=== PATIENT | female | born 1945 | race Caucasian/White ===

== ENCOUNTER 2018-04-30 14:03 | Emergency (ER) | payer OTHER ==
[2018-04-30 14:29] VITALS: BP 157/70; PULSE 60; TEMP 98.5; BMI 28.3
--- NOTE | 2018-04-30 14:45 | PDOC ---
History of Present Illness - General Chief Complaint: Pain Stated Complaint: PAIN Time Seen by Provider: 04/30/18 14:35 History Source: Patient - History of Present Illness Occurred: reports: yesterday Upper Extremity Pain Location: right: hand Method of Injury: reports: direct blow Past History - Past Medical History Allergies/Adverse Reactions: Allergies Allergy/AdvReac Type Severity Reaction Status Date / Time codeine [Codeine] Allergy Unknown Verified 04/30/18 14:20 hydromorphone HCl Allergy Unknown Verified 04/30/18 14:20 [From Dilaudid] tramadol Allergy Unknown Verified 04/30/18 14:20 levofloxacin [From Levaquin] Allergy Verified 04/30/18 14:20 Home Medications: Ambulatory Orders Albuterol Sulfate 0.042% [Ventolin 0.042% (Half-Strength) -] 1 neb PO Q4H PRN Amlodipine Besylate [Norvasc -] 5 mg PO DAILY 06/09/12 Aspirin [ASA -] 81 mg PO DAILY 06/09/12 Budesonide/Formeterol Fumarate [SYMBICORT 160/4.5mcg -] 1 inh IH BID 06/09/12 Dicyclomine HCl [Bentyl -] 10 mg PO BID 06/09/12 Gabapentin [Neurontin] 300 mg PO DAILY 06/09/12 Metoprolol Succinate [Toprol XL -] 25 mg PO DAILY 06/09/12 Montelukast Na [Singulair -] 10 mg PO DAILY 06/09/12 Oxybutynin Chloride [Oxybutynin Chloride ER] 10 mg PO DAILY 06/09/12 Tiotropium Cedar [Spiriva] 18 mcg IH DAILY 06/09/12 Valsartan/Hydrochlorothiazide [Diovan Hct 160-12.5 mg Tablet -] 1 combo PO DAILY 06/09/12 Fluconazole [Diflucan -] 100 mg PO DAILY #5 tablet 07/29/16 Lactobacillus Acidophilus [Bacid -] 1 each PO BID #14 capsule 07/29/16 Pantoprazole Sodium [Protonix -] 40 mg PO DAILY #30 tablet.ec 07/29/16 Asthma: Yes Cardiac Disorders: Yes (angina 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) COPD: Yes (home O2) GI Disorders: Yes (REFLUX.) Disorders: Yes HTN: Yes Thyroid Disease: No - Surgical History Abdominal Surgery: Yes Appendectomy: Yes - Immunization History Immunization Up to Date: Yes - Suicide/Smoking/Psychosocial Hx Smoking Status: Yes Smoking History: Never smoked Have you smoked in the past 12 months: No Number of Cigarettes Smoked Daily: 0 If you are a former smoker, when did you quit?: 31 years ago Information on smoking cessation initiated: No Hx Alcohol Use: No Drug/Substance Use Hx: No Substance Use Type: None Hx Substance Use Treatment: No Review of Systems - Review of Systems Musculoskeletal: Yes: Joint Pain, Joint Swelling *Physical Exam - Vital Signs Last Vital Signs Temp Pulse Resp BP Pulse Ox 98.5 F 60 18 157/70 99 04/30/18 14:16 04/30/18 14:16 04/30/18 14:16 04/30/18 14:16 04/30/18 14:16 - Physical Exam General Appearance: Yes: Appropriately Dressed. No: Apparent Distress HEENT: positive: Normal Voice Neck: positive: Supple Respiratory/Chest: negative: Respiratory Distress Extremity: positive: Other (ecchymosis to ulnar aspect of R hand/wrist, no joint swelling/deformity, no ttp to snuff box, FROMI) Integumentary: positive: Dry, Warm Neurologic: positive: Alert, Normal Mood/Affect ED Treatment Course - RADIOLOGY Radiology Studies Ordered: Category Date Time Status WRIST W/HAND-RIGHT* [RAD] Stat Radiology 04/30/18 14:39 Ordered Medical Decision Making - Medical Decision Making 04/30/18 14:39 72 yo F, h/o COPD (02 dependent), hypertension, angina, CVA, GERD and asthma, here with bruising to right hand. Patient states yesterday while trying to "fix " something in her car, she developed pain and bruising to ulnar aspect of R hand/wrist after repeatedly banging on rubbering that surrounds car window. Concerned that bruising might be "a blood clot" per pt. No sig pain at this time See exam Hand contusion -XR though unlikely fx -declines pain meds 04/30/18 14:54 XR neg. Stable for dc w/ reassurance *DC/Admit/Observation/Transfer Diagnosis at time of Disposition: Contusion Qualifiers: Encounter type: initial encounter Contusion area: hand Laterality: right Qualified Code(s): S60.221A - Contusion of right hand, initial encounter - Discharge Dispostion Disposition: HOME Condition at time of disposition: Good - Referrals Referrals: Dorothea Haley MD [Primary Care Provider] - - Patient Instructions Printed Discharge Instructions: Contusion Additional Instructions: You sustained a contusion which will resolve in time Follow up with your PMD as needed - Post Discharge Activity
== END 2018-04-30 14:56 | disposition home or self-care (01) ==
LOC: JER 14:03 → JERFT 14:03
DX: S60.221A Contusion of right hand, initial encounter (principal); W22.8XXA Striking against or struck by other objects, initial encounter; Y93.89 Activity, other specified; Y92.89 Other specified places as the place of occurrence of the external cause; Y99.8 Other external cause status; J45.909 Unspecified asthma, uncomplicated; J44.9 Chronic obstructive pulmonary disease, unspecified; I10 Essential (primary) hypertension; K21.9 Gastro-esophageal reflux disease without esophagitis; Z86.73 Personal history of transient ischemic attack (TIA), and cerebral infarction without residual deficits; I25.119 Atherosclerotic heart disease of native coronary artery with unspecified angina pectoris; I49.9 Cardiac arrhythmia, unspecified; Z99.81 Dependence on supplemental oxygen
CPT/HCPCS: 73110-TC-RT-FY; 73130-TC-RT-FY; 99281-25

== ENCOUNTER 2021-03-11 10:32 | Inpatient (IN) | payer OTHER ==
[2021-03-11 10:39] VITALS: BMI 31.1
[2021-03-11 11:50] LABS: BASO % 0.5 % (0-2.0); EOS % 0.1 % (0-4.5); HEMATOCRIT 41.9 % (32.4-45.2); HEMOGLOBIN 13.9 GM/dL (10.7-15.3); LYMPH % 6.3 % (8-40); MCH 28.4 pg (25.7-33.7); MCHC 33.2 g/dl (32.0-36.0); MEAN CELL VOLUME 85.5 fl (80-96); MEAN PLT VOLUME 7.8 fl (7.5-11.1); MONO % 4.6 % (3.8-10.2); NEUT % 88.5 % (42.8-82.8); PLATELET COUNT 163 K/MM3 (134-434); RDW 13.7 % (11.6-15.6); WHITE BLOOD COUNT 12.3 K/mm3 (4.0-10.0)
[2021-03-11 11:57] LABS: INR 0.96 (0.83-1.09); PROTHROMBIN TIME (PATIENT) 11.8 SEC (9.7-13.0)
[2021-03-11 12:00] LABS: ACTIVATED PTT 25.9 SECONDS (25.2-36.5)
[2021-03-11 12:13] LABS: CHLORIDE 107 mmol/L (98-107); SODIUM 140 mmol/L (136-145)
[2021-03-11 12:16] LABS: ALBUMIN 3.2 g/dl (3.4-5.0); ANION GAP 6 MMOL/L (8-16); BLOOD UREA NITROGEN 16.4 mg/dL (7-18); CALCIUM 8.3 mg/dL (8.5-10.1); CO2 27 mmol/L (21-32); GLUCOSE,RANDOM 89 mg/dL (74-106)
[2021-03-11 12:19] LABS: CREATININE 0.9 mg/dL (0.55-1.3); SGOT/AST 32 U/L (15-37); SGPT/ALT 29 U/L (13-61)
[2021-03-11 12:21] LABS: ALK PHOS 254 U/L (45-117); BILIRUBIN,TOTAL 1.8 mg/dL (0.2-1); TOT PROT 6.4 g/dl (6.4-8.2)
[2021-03-11] MEDS ORDERED: ACETAMINOPHEN 1000 MG/100 ML VIAL (NON FORMULARY) IVPB ONE (16:46)
[2021-03-11] MEDS ORDERED: ACETAMINOPHEN INJECTION 100 ML IVPB ONE (17:11)
[2021-03-11] MEDS ORDERED: PT OWN MED DRAWER 7, Y5N ONE ×2 (20:23→21:24)
[2021-03-11] MEDS: AMPICILLIN NA/SULBACTAM NA 3 GM in SODIUM CHLORIDE 100 ML IVPB SCH (20:45)
[2021-03-11] MEDS: BUDESONIDE/FORMETEROL FUMARATE 160/4.5 mcg INHALER IH SCH (21:50)
[2021-03-11] MEDS: ACETAMINOPHEN 1000 MG/100 ML VIAL (NON FORMULARY) IVPB PRN (21:57)
[2021-03-12] MEDS ORDERED: PT OWN MED DRAWER 7, Y5N ONE (02:16)
[2021-03-12] MEDS: AMPICILLIN NA/SULBACTAM NA 3 GM in SODIUM CHLORIDE 100 ML IVPB SCH ×3 (02:19→17:59)
[2021-03-12] MEDS: ACETAMINOPHEN 1000 MG/100 ML VIAL (NON FORMULARY) IVPB PRN (04:32)
[2021-03-12 08:40] LABS: BASO % 0.4 % (0-2.0); EOS % 2.7 % (0-4.5); HEMATOCRIT 40.3 % (32.4-45.2); HEMOGLOBIN 13.3 GM/dL (10.7-15.3); MCH 28.7 pg (25.7-33.7); MEAN PLT VOLUME 8.1 fl (7.5-11.1); MONO % 6.8 % (3.8-10.2); NEUT % 79.1 % (42.8-82.8); PLATELET COUNT 150 K/MM3 (134-434); RBC 4.64 M/mm3 (3.60-5.2); RDW 14.2 % (11.6-15.6); WHITE BLOOD COUNT 11.2 K/mm3 (4.0-10.0)
[2021-03-12 08:57] LABS: CHLORIDE 109 mmol/L (98-107); SODIUM 143 mmol/L (136-145)
[2021-03-12 08:59] LABS: ALBUMIN 2.8 g/dl (3.4-5.0); ANION GAP 5 MMOL/L (8-16); BLOOD UREA NITROGEN 11.9 mg/dL (7-18); CALCIUM 8.2 mg/dL (8.5-10.1); CO2 29 mmol/L (21-32); GLUCOSE,RANDOM 81 mg/dL (74-106)
[2021-03-12 09:02] LABS: CREATININE 0.8 mg/dL (0.55-1.3); SGOT/AST 19 U/L (15-37); SGPT/ALT 22 U/L (13-61)
[2021-03-12 09:04] LABS: BILIRUBIN,TOTAL 2.3 mg/dL (0.2-1); TOT PROT 5.5 g/dl (6.4-8.2)
[2021-03-12 09:11] LABS: ALK PHOS 203 U/L (45-117)
[2021-03-12] MEDS: BUDESONIDE/FORMETEROL FUMARATE 160/4.5 mcg INHALER IH SCH ×2 (09:59→21:51)
[2021-03-12] MEDS ORDERED: PANTOPRAZOLE SODIUM 40 MG VIAL IVPUSH SCH (10:00)
[2021-03-12 11:35] LABS: LDH 183 U/L (84-246)
[2021-03-12] MEDS: metoPROLOL SUCCINATE 25 MG TAB.SR.24H (FP) PO SCH ×2 (13:51→15:09)
[2021-03-12] MEDS: LISINOPRIL 20 MG TABLET PO SCH ×2 (13:51→15:09)
[2021-03-13] MEDS ORDERED: PT OWN MED DRAWER 7, Y5N ONE ×2 (02:42→17:10)
[2021-03-13] MEDS: AMPICILLIN NA/SULBACTAM NA 3 GM in SODIUM CHLORIDE 100 ML IVPB SCH ×3 (02:47→17:15)
[2021-03-13 08:45] LABS: BASO % 0.4 % (0-2.0); EOS % 3.7 % (0-4.5); HEMATOCRIT 43.2 % (32.4-45.2); HEMOGLOBIN 14.3 GM/dL (10.7-15.3); LYMPH % 12.8 % (8-40); MCH 29.3 pg (25.7-33.7); MCHC 33.2 g/dl (32.0-36.0); MEAN CELL VOLUME 88.2 fl (80-96); MONO % 4.1 % (3.8-10.2); PLATELET COUNT 178 K/MM3 (134-434); RBC 4.89 M/mm3 (3.60-5.2); RDW 14.3 % (11.6-15.6)
[2021-03-13 09:06] LABS: ALBUMIN 3.2 g/dl (3.4-5.0); BILIRUBIN,TOTAL 1.8 mg/dL (0.2-1)
[2021-03-13 09:08] LABS: BILIRUBIN,DIRECT 0.4 mg/dL (0.0-0.2); TOT PROT 6.6 g/dl (6.4-8.2)
[2021-03-13 09:09] LABS: ALBUMIN 3.2 g/dl (3.4-5.0); BLOOD UREA NITROGEN 14.1 mg/dL (7-18); CALCIUM 8.8 mg/dL (8.5-10.1)
[2021-03-13 09:12] LABS: CREATININE 0.7 mg/dL (0.55-1.3)
[2021-03-13 09:15] LABS: BILIRUBIN,TOTAL 1.8 mg/dL (0.2-1); TOT PROT 6.6 g/dl (6.4-8.2)
[2021-03-13] MEDS: LISINOPRIL 20 MG TABLET PO SCH (09:15)
[2021-03-13] MEDS: metoPROLOL SUCCINATE 25 MG TAB.SR.24H (FP) PO SCH (09:15)
[2021-03-13] MEDS: PANTOPRAZOLE 40 MG TABLET PO SCH (09:15)
[2021-03-13] MEDS: BUDESONIDE/FORMETEROL FUMARATE 160/4.5 mcg INHALER IH SCH ×2 (10:13→21:32)
[2021-03-13] MEDS ORDERED: amLODIPine BESYLATE 5 MG TABLET (FP) PO ONE (17:31)
[2021-03-13] MEDS: LIPASE/PROTEASE/AMYLASE 6,000 UNIT CAPSULE PO SCH ×2 (18:47→19:07)
[2021-03-14] MEDS: AMPICILLIN NA/SULBACTAM NA 3 GM in SODIUM CHLORIDE 100 ML IVPB SCH ×3 (02:52→17:22)
[2021-03-14] MEDS ORDERED: CHOLESTYRAMINE/ASPARTAME 4 GM PACKET PO SCH (07:00)
[2021-03-14 08:32] LABS: BASO % 0.7 % (0-2.0); EOS % 5.9 % (0-4.5); HEMATOCRIT 39.9 % (32.4-45.2); HEMOGLOBIN 13.5 GM/dL (10.7-15.3); LYMPH % 11.6 % (8-40); MCH 29.4 pg (25.7-33.7); MCHC 33.7 g/dl (32.0-36.0); MEAN CELL VOLUME 87.3 fl (80-96); MEAN PLT VOLUME 7.9 fl (7.5-11.1); MONO % 5.4 % (3.8-10.2); NEUT % 76.4 % (42.8-82.8); PLATELET COUNT 160 K/MM3 (134-434); RBC 4.57 M/mm3 (3.60-5.2); RDW 13.6 % (11.6-15.6); RETICULOCYTES 1.09 % (0.5-1.5); WHITE BLOOD COUNT 6.7 K/mm3 (4.0-10.0)
[2021-03-14 08:49] LABS: CALCIUM 7.9 mg/dL (8.5-10.1)
[2021-03-14 08:50] LABS: BLOOD UREA NITROGEN 6.9 mg/dL (7-18)
[2021-03-14 08:53] LABS: CREATININE 0.6 mg/dL (0.55-1.3)
[2021-03-14] MEDS ORDERED: PT OWN MED DRAWER 7, Y5N ONE ×2 (09:21→17:47)
[2021-03-14] MEDS: metoPROLOL SUCCINATE 25 MG TAB.SR.24H (FP) PO SCH (09:26)
[2021-03-14] MEDS: LIPASE/PROTEASE/AMYLASE 6,000 UNIT CAPSULE PO SCH ×3 (09:26→17:21)
[2021-03-14] MEDS: PANTOPRAZOLE 40 MG TABLET PO SCH (09:26)
[2021-03-14] MEDS: LISINOPRIL 20 MG TABLET PO SCH (09:30)
[2021-03-14] MEDS: BUDESONIDE/FORMETEROL FUMARATE 160/4.5 mcg INHALER IH SCH ×2 (11:16→21:16)
[2021-03-14] MEDS: CHOLESTYRAMINE/ASPARTAME 4 GM PACKET PO SCH ×2 (12:11→17:21)
[2021-03-14] MEDS ORDERED: D5-1/2NS+20 MEQ KCL - 20 MEQ/1,000 ML INFUS.BAG IV SCH (12:45)
[2021-03-14 13:06] LABS: HEP B CORE AB, TOT Negative (Negative)
[2021-03-14] MEDS: KCL 10 MEQ IVPB 10 MEQ/100 ML INFUS.BAG IVPB SCH ×2 (14:23→18:48)
[2021-03-15] MEDS: AMPICILLIN NA/SULBACTAM NA 3 GM in SODIUM CHLORIDE 100 ML IVPB SCH ×3 (02:24→17:13)
[2021-03-15 08:24] LABS: BASO % 1.1 % (0-2.0); EOS % 8.5 % (0-4.5); HEMATOCRIT 38.6 % (32.4-45.2); LYMPH % 18.2 % (8-40); MCH 29.2 pg (25.7-33.7); MCHC 33.7 g/dl (32.0-36.0); MEAN CELL VOLUME 86.7 fl (80-96); MEAN PLT VOLUME 7.8 fl (7.5-11.1); MONO % 7.5 % (3.8-10.2); NEUT % 64.7 % (42.8-82.8); PLATELET COUNT 150 K/MM3 (134-434); RBC 4.46 M/mm3 (3.60-5.2); RDW 13.5 % (11.6-15.6); WHITE BLOOD COUNT 5.3 K/mm3 (4.0-10.0)
[2021-03-15] MEDS ORDERED: PT OWN MED DRAWER 7, Y5N ONE ×3 (08:24→17:12)
[2021-03-15] MEDS: CHOLESTYRAMINE/ASPARTAME 4 GM PACKET PO SCH ×3 (08:27→17:13)
[2021-03-15 08:53] LABS: ALBUMIN 2.6 g/dl (3.4-5.0); BLOOD UREA NITROGEN 4.3 mg/dL (7-18); CALCIUM 7.8 mg/dL (8.5-10.1); MAGNESIUM 1.8 mg/dL (1.8-2.4)
[2021-03-15 08:57] LABS: CREATININE 0.6 mg/dL (0.55-1.3); TOT PROT 5.4 g/dl (6.4-8.2)
[2021-03-15] MEDS: metoPROLOL SUCCINATE 25 MG TAB.SR.24H (FP) PO SCH (09:10)
[2021-03-15] MEDS: PANTOPRAZOLE 40 MG TABLET PO SCH (09:10)
[2021-03-15] MEDS: LISINOPRIL 20 MG TABLET PO SCH (09:10)
[2021-03-15] MEDS: LIPASE/PROTEASE/AMYLASE 6,000 UNIT CAPSULE PO SCH ×3 (09:11→17:14)
[2021-03-15] MEDS: BUDESONIDE/FORMETEROL FUMARATE 160/4.5 mcg INHALER IH SCH ×3 (09:11→21:50)
[2021-03-15] MEDS ORDERED: POTASSIUM CHLORIDE ORAL LIQUID 20 MEQ/15 ML PO ONE (11:46)
[2021-03-15] MEDS ORDERED: ALPRAZolam 0.25 MG TABLET PO PRN (11:46)
[2021-03-16] MEDS ORDERED: PT OWN MED DRAWER 7, Y5N ONE ×5 (00:42→21:03)
[2021-03-16] MEDS: AMPICILLIN NA/SULBACTAM NA 3 GM in SODIUM CHLORIDE 100 ML IVPB SCH ×3 (01:24→17:37)
[2021-03-16] MEDS: CHOLESTYRAMINE/ASPARTAME 4 GM PACKET PO SCH ×3 (08:03→17:04)
[2021-03-16] MEDS: LIPASE/PROTEASE/AMYLASE 6,000 UNIT CAPSULE PO SCH ×3 (08:32→17:04)
[2021-03-16] MEDS: LISINOPRIL 20 MG TABLET PO SCH (09:13)
[2021-03-16] MEDS: PANTOPRAZOLE 40 MG TABLET PO SCH (09:14)
[2021-03-16] MEDS: metoPROLOL SUCCINATE 25 MG TAB.SR.24H (FP) PO SCH (09:14)
[2021-03-16] MEDS: BUDESONIDE/FORMETEROL FUMARATE 160/4.5 mcg INHALER IH SCH ×2 (09:15→21:28)
[2021-03-16 12:06] LABS: BLOOD UREA NITROGEN 7.4 mg/dL (7-18); CALCIUM 8.7 mg/dL (8.5-10.1)
[2021-03-16 12:08] LABS: BILIRUBIN,TOTAL 0.9 mg/dL (0.2-1); TOT PROT 6.3 g/dl (6.4-8.2)
[2021-03-16 12:09] LABS: CREATININE 0.8 mg/dL (0.55-1.3)
[2021-03-16] MEDS: BANATROL PLUS POWDER PACKET PO SCH ×2 (17:04→21:28)
[2021-03-16] MEDS ORDERED: DICYCLOMINE HCL 10 MG CAPSULE PO SCH (22:00)
[2021-03-16] MEDS ORDERED: POTASSIUM CHLORIDE ORAL LIQUID 20 MEQ/15 ML PO ONE (22:35)
[2021-03-17] MEDS: BANATROL PLUS POWDER PACKET PO SCH ×4 (06:40→17:08)
[2021-03-17] MEDS: LISINOPRIL 20 MG TABLET PO SCH (09:40)
[2021-03-17] MEDS: metoPROLOL SUCCINATE 25 MG TAB.SR.24H (FP) PO SCH (09:41)
[2021-03-17] MEDS: BUDESONIDE/FORMETEROL FUMARATE 160/4.5 mcg INHALER IH SCH (09:42)
[2021-03-17] MEDS ORDERED: amLODIPine BESYLATE 5 MG TABLET (FP) PO SCH (10:00)
[2021-03-17] MEDS ORDERED: PT OWN MED DRAWER 7, Y5N ONE ×2 (11:37→16:43)
[2021-03-17 14:34] VITALS: BP 143/78; PULSE 69; TEMP 98.3
[2021-03-18 19:06] LABS: TRANSGLUTAMINASE IGA < 2 U/mL (0-3); TRANSGLUTAMINASE IGG < 2 U/mL (0-5)
== END 2021-03-17 17:00 | disposition home or self-care (01) | DRG 394 ==
LOC: JER 10:32 → JERBED 11:43 → J6S 18:47
PROVIDERS: ADMIT Internal Medicine; ATTEND Internal Medicine
PROC: 0DBP8ZX Excision of Rectum, Via Natural or Artificial Opening Endoscopic, Diagnostic (ICD-10-PCS; 2021-03-13)
PROC: 0DBM8ZX Excision of Descending Colon, Via Natural or Artificial Opening Endoscopic, Diagnostic (ICD-10-PCS; 2021-03-13)
PROC: 0DBL8ZX Excision of Transverse Colon, Via Natural or Artificial Opening Endoscopic, Diagnostic (ICD-10-PCS; 2021-03-13)
PROC: 0DBN8ZX Excision of Sigmoid Colon, Via Natural or Artificial Opening Endoscopic, Diagnostic (ICD-10-PCS; principal; 2021-03-13 12:00)
DX: K55.9 Vascular disorder of intestine, unspecified (principal); K62.5 Hemorrhage of anus and rectum; I10 Essential (primary) hypertension; J45.909 Unspecified asthma, uncomplicated; K21.9 Gastro-esophageal reflux disease without esophagitis; K76.0 Fatty (change of) liver, not elsewhere classified; K57.90 Diverticulosis of intestine, part unspecified, without perforation or abscess without bleeding; E66.9 Obesity, unspecified; Z68.31 Body mass index [BMI] 31.0-31.9, adult
CPT/HCPCS: 36415; 71045-TC-FY; 74174-TC; 80048; 80053; 80076; 82272; 82550; 82728; 82977; 83516; 83540; 83550; 83605; 83615; 83735; 84484; 85025; 85045; 85610; 85730; 86704; 86706; 86707; 86708; 86709; 86803; 86850; 86900; 86901; 87045; 87046; 87177; 87205; 87209; 87324; 87340; 87449; 88305-TC; 93005; 93010; 99285-25; C9803; J0131; U0003; U0005

== ENCOUNTER 2021-05-20 09:42 | Day surgery (SDC) | payer OTHER ==
[2021-05-14 10:59] VITALS: BMI 30.5
[2021-05-20 10:15] VITALS: TEMP 97.8
[2021-05-20 12:08] VITALS: BP 133/63; PULSE 79
== END 2021-05-20 12:05 | disposition home or self-care (01) ==
LOC: FASU-ENDO 09:42
PROVIDERS: ATTEND Internal Medicine Gastroenterology
PROC: 0DBK8ZX Excision of Ascending Colon, Via Natural or Artificial Opening Endoscopic, Diagnostic (ICD-10-PCS; 2021-05-20)
PROC: 0DBL8ZX Excision of Transverse Colon, Via Natural or Artificial Opening Endoscopic, Diagnostic (ICD-10-PCS; 2021-05-20)
PROC: 0DBN8ZX Excision of Sigmoid Colon, Via Natural or Artificial Opening Endoscopic, Diagnostic (ICD-10-PCS; 2021-05-20)
PROC: 0DBM8ZX Excision of Descending Colon, Via Natural or Artificial Opening Endoscopic, Diagnostic (ICD-10-PCS; 2021-05-20)
PROC: 0DBL8ZX Excision of Transverse Colon, Via Natural or Artificial Opening Endoscopic, Diagnostic (ICD-10-PCS; principal; 2021-05-20 10:48)
DX: D12.3 Benign neoplasm of transverse colon (principal); D12.5 Benign neoplasm of sigmoid colon; K57.30 Diverticulosis of large intestine without perforation or abscess without bleeding; K51.40 Inflammatory polyps of colon without complications; K64.0 First degree hemorrhoids; K63.89 Other specified diseases of intestine; R19.7 Diarrhea, unspecified

== ENCOUNTER 2021-09-09 10:40 | Day surgery (SDC) | payer OTHER ==
[2021-09-03 13:20] VITALS: BMI 30.5
[2021-09-09 14:49] VITALS: PULSE 74; TEMP 97.8
[2021-09-09 14:50] VITALS: BP 109/65
== END 2021-09-09 14:00 | disposition home or self-care (01) ==
LOC: FASU-ENDO 10:40
PROVIDERS: ATTEND Internal Medicine Gastroenterology
PROC: 0DB68ZX Excision of Stomach, Via Natural or Artificial Opening Endoscopic, Diagnostic (ICD-10-PCS; 2021-09-09)
PROC: 0DB48ZX Excision of Esophagogastric Junction, Via Natural or Artificial Opening Endoscopic, Diagnostic (ICD-10-PCS; 2021-09-09)
PROC: 0DB98ZX Excision of Duodenum, Via Natural or Artificial Opening Endoscopic, Diagnostic (ICD-10-PCS; principal; 2021-09-09 12:52)
DX: R10.13 Epigastric pain (principal); K44.9 Diaphragmatic hernia without obstruction or gangrene; K22.10 Ulcer of esophagus without bleeding; K25.9 Gastric ulcer, unspecified as acute or chronic, without hemorrhage or perforation; K29.50 Unspecified chronic gastritis without bleeding; K21.00 Gastro-esophageal reflux disease with esophagitis, without bleeding
CPT/HCPCS: 88305-TC; 88342-TC

== ENCOUNTER 2022-08-28 20:37 | Emergency (ER) | payer OTHER ==
[2022-08-28 20:45] VITALS: BMI 28.1
[2022-08-28] MEDS ORDERED: LIDOCAINE 5% TOPICAL PATCH TP ONE (21:42)
[2022-08-28] MEDS ORDERED: KETOROLAC TROMETHAMINE 15 MG/ML VIAL IVPUSH ONE (21:42)
[2022-08-28] MEDS ORDERED: LIDOCAINE PATCH REMOVAL MC SCH (22:00)
[2022-08-28] MEDS ORDERED: KETOROLAC TROMETHAMINE 15 MG/ML VIAL ONE (22:05)
[2022-08-28] MEDS ORDERED: LIDOCAINE 5% TOPICAL PATCH ONE (22:05)
[2022-08-28 22:38] LABS: BASO % 0.3 % (0-2.0); EOS % 0.2 % (0-4.5); HEMATOCRIT 40.8 % (32.4-45.2); HEMOGLOBIN 13.3 GM/dL (10.7-15.3); MCHC 32.6 g/dl (32.0-36.0); MEAN PLT VOLUME 7.5 fl (7.5-11.1); MONO % 7.4 % (3.8-10.2); NEUT % 70.1 % (42.8-82.8); PLATELET COUNT 211 10^3/uL (134-434); RBC 4.59 M/mm3 (3.60-5.2); RDW 14.1 % (11.6-15.6); WHITE BLOOD COUNT 7.3 K/mm3 (4.0-10.0)
[2022-08-28 22:55] LABS: CALCIUM 8.5 mg/dL (8.5-10.1)
[2022-08-28 22:56] LABS: ALBUMIN 3.3 g/dl (3.4-5.0); BLOOD UREA NITROGEN 16.2 mg/dL (7-18)
[2022-08-28 22:59] LABS: CREATININE 1.2 mg/dL (0.55-1.3)
[2022-08-28 23:00] LABS: TOT PROT 6.2 g/dl (6.4-8.2)
[2022-08-28 23:01] LABS: BILIRUBIN,TOTAL 1.2 mg/dL (0.2-1)
[2022-08-28] MEDS ORDERED: MAGNESIUM SULF 50% (8.12 MEQ/2 ML-1 GM VIAL) IVPB ONE (23:21)
[2022-08-28] MEDS ORDERED: POTASSIUM CHLORIDE TABS 20 MEQ TABLET.ER (FP) PO ONE ×2 (23:22→23:55)
[2022-08-28] MEDS ORDERED: METHOCARBAMOL 500 MG TABLET PO ONE (23:37)
[2022-08-28] MEDS ORDERED: MAGNESIUM SULFATE IN WATER 2 GM/50 ML IVPB IVPB ONE (23:52)
[2022-08-28] MEDS ORDERED: METHOCARBAMOL 500 MG TABLET ONE (23:53)
[2022-08-29 01:44] VITALS: BP 162/81; PULSE 79; RESP 16; TEMP 98.1
== END 2022-08-29 01:45 | disposition home or self-care (01) ==
LOC: JER 20:37
PROC: 3E0233Z Introduction of Anti-inflammatory into Muscle, Percutaneous Approach (ICD-10-PCS; principal; 2022-08-28)
DX: M54.50 Low back pain, unspecified (principal); W01.0XXA Fall on same level from slipping, tripping and stumbling without subsequent striking against object, initial encounter
CPT/HCPCS: 36415; 72070-TC-FY; 72100-TC-FY; 72170-TC-FY; 80053; 82550; 82553; 85025; 99284-25

== ENCOUNTER 2023-09-14 10:50 | Day surgery (SDC) | payer OTHER ==
[2023-09-12 14:54] VITALS: BMI 26.5
[2023-09-14] MEDS ORDERED: MIDAZOLAM HCL 2 MG/2 ML SINGLE DOSE VIAL ONE (12:31)
[2023-09-14 13:12] VITALS: RESP 16; TEMP 97.5
[2023-09-14 13:58] VITALS: BP 160/87; PULSE 76
== END 2023-09-14 14:10 | disposition home or self-care (01) ==
LOC: FASU-ENDO 10:50
PROVIDERS: ATTEND Internal Medicine Gastroenterology
PROC: 0DB68ZX Excision of Stomach, Via Natural or Artificial Opening Endoscopic, Diagnostic (ICD-10-PCS; 2023-09-14)
PROC: 0DB98ZX Excision of Duodenum, Via Natural or Artificial Opening Endoscopic, Diagnostic (ICD-10-PCS; principal; 2023-09-14 12:47)
DX: K29.50 Unspecified chronic gastritis without bleeding (principal); K31.9 Disease of stomach and duodenum, unspecified; R13.10 Dysphagia, unspecified
CPT/HCPCS: 88305-TC; 88342-TC